=== PATIENT | female | born 1935 | race Caucasian/White ===

== ENCOUNTER → 2016-06-29 | Outpatient (CLI) | payer MEDICARE ==
[~2016-06-29] MED LIST: ASPIRIN81 M1 PO; ATORVASTATIN CA20 M1 PO; AZOPT OPH; BONIVA150 MG PO; BRINZOLAMIDE OPH; CALCIUM 500 + D1 TA2 PO; CATAPRES0.3 MG PO; DULE1ARO1 INH; DULERA100 PO; INHALER INH; LISINOPRIL HCTZ1 TAB PO; LOPRESSOR25 MG PO; METFORMIN500 MG PO; NIFEDIPINE30 MG PO; NIFEDIPINE60 MG PO; POTASSIUM20 MEQ PO; PRAVASTATIN SOD80 MG PO; Synthroid,Levo50 MCG PO; VITAMIN D400 I1 PO; ZESTRIL,PRINIVI20 MG PO; [UNRECOGNIZED DRUG - OTHER] PO
--- NOTE | ~2016-06-29 | HM ---
[place], [place] HOLTER MONITOR REPORT NAME: HERMILO GUARDADO UNIT #: [id number] ROOM: DOCTOR: ELE IRIZARRY MD BIRTHDATE: [birth year] DOS: 07/02/2016 A 48 HOUR HOLTER MONITOR Atrial fibrillation, intact cardia, syncope. The patient's baseline rhythm is normal sinus with average heart rate of 66 beats per minute, maximum heart rate 110 beats per minute with minimum heart rate of 51 beats per minute. SUPRAVENTRICULAR ACTIVITY: The patient had noted to have total of 104 isolated PACs. VENTRICULAR ACTIVITY: The patient noted to have a total 33 isolated PVCs. No significant blocks, pauses, or bradycardia. There was no diary entries. SUMMARY OF FINDINGS: Benign Holter with rare PACs and PVCs were not sustained or paroxysmal arrhythmias as significance noted. ELE IRIZARRY MD CM:HOLTER:HOLTER MONITOR REPORT [id number] ELE IRIZARRY MD
== END | disposition home or self-care (01) ==
LOC: CARD 06-22 10:30
DX: I48.91 Unspecified atrial fibrillation (principal); R00.0 Tachycardia, unspecified; R55 Syncope and collapse

== ENCOUNTER → 2019-07-19 | Outpatient (CLI) | payer MEDICARE ==
--- NOTE | 2019-07-19 13:44 | NUR ---
SPEECH PATHOLOGY Outpatient MBS completed as per orders due to suspected aspiration. Patient was accompanied by family members who reported that patient has been having episodes of difficulty catching her breath and occasional coughing with meals. It was reported that she has random episodes where she feels she cannot get air in or out and only finds relief when she breaths in cold air. There are no reports of recent pneumonia. 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 Patient receives a regular diet and thin liquid. Patient reported that many foods bother her stomach so she avoids them. Patient reportedly has not been evaluated recently for breathing or GI issues. For assessment she was alert and cooperative with generalized weakness displayed. Hoarse vocal quality was noted. Oral exam revealed presence of upper and lower denture with loose fit reported. Labial and buccal skills were mildly reduced in ROM. Lingual skills were WNL in terms of strength, ROM and coordination. She was able to volitionally cough and swallow. She was assessed with puree, solid and thin liquid taken by cup and straw. Results revealed a functional oral and pharyngeal swallow. No penetration or aspiration occurred. A small amount of pooling in valleculae was displayed with foods however it cleared with subsequent swallow. Recommend patient remain on present diet with use of safety precautions such as small bites and sips, chewing thoroughly and alternating liquid and solid. Recommend patient follow up with referring physician to determine plan. No follow up speech pathology services are warranted at this time. Dictated report to follow. Thank you for this referral. JAVY ROB MSCCC-CONSULTING SYSTEMS ENGINEER
== END | disposition home or self-care (01) ==
LOC: RAD/SH 13:00
DX: R06.02 Shortness of breath (principal)

== ENCOUNTER 2019-12-12 13:52 | Emergency (ER) | payer MEDICARE ==
[~2019-12-12] VITALS: Ht 165.1 cm; Wt 59.0 kg
[2019-12-12] MEDS ORDERED: CEPHALEXIN500 M1 PO (14:34)
== END 2019-12-12 14:41 | disposition home or self-care (01) ==
LOC: ED 13:52
DX: T23.232A Burn of second degree of multiple left fingers (nail), not including thumb, initial encounter (principal); I10 Essential (primary) hypertension; M81.0 Age-related osteoporosis without current pathological fracture; E11.9 Type 2 diabetes mellitus without complications; X10.0XXA Contact with hot drinks, initial encounter; Y93.89 Activity, other specified; Y92.89 Other specified places as the place of occurrence of the external cause; Y99.8 Other external cause status; Z79.899 Other long term (current) drug therapy; Z79.82 Long term (current) use of aspirin

== ENCOUNTER 2020-10-27 14:55 | Emergency (ER) | payer MEDICARE ==
[~2020-10-27] VITALS: Ht 162.5 cm; Wt 59.0 kg
[~2020-10-27 14:55] MED LIST changes: +CEPHALEXIN500 M1 PO
[2020-10-27 15:45] LABS: BASO % 0.3 % (0.0-1.0); EOS # 0.1 10*3/uL (0.0-0.4); EOS % 1.3 % (1.0-4.0); HEMATOCRIT 34.1 % (37.0-47.0); LYMPH # 1.6 10*3/uL (1.3-4.4); LYMPH % 15.5 % (27.0-41.0); MEAN CELL VOLUME 89.3 fl (81.0-99.0); MEAN CORPUSCULAR HGB CONC 31.4 g/dl (33.0-37.0); MEAN PLATELET VOLUME 10.7 fl (9.6-12.3); MONO # 0.9 10*3/uL (0.1-1.0); MONO % 8.7 % (3.0-9.0); NEUT # 7.6 10*3/uL (2.3-7.9); PLATELET COUNT AUTOMATED 214 10*3/uL (130-400); RED BLOOD COUNT 3.82 10*6/uL (4.10-5.10); RED CELL DISTRI WIDTH 14.2 % (0-14.5); WHITE BLOOD COUNT 10.3 10*3/uL (4.8-10.8)
[2020-10-27 16:01] LABS: ALBUMIN 3.7 gm/dl (3.1-4.5); CREATININE 1.06 mg/dL (0.55-1.02); POTASSIUM 3.7 mmol/L (3.5-5.1); TOTAL PROTEIN 7.1 gm/dL (6.4-8.2)
[2020-10-27] MEDS ORDERED: ZOFRAN4 MG PO (17:09)
== END 2020-10-27 17:15 | disposition home or self-care (01) ==
LOC: ED 14:55
PROVIDERS: Student in an Organized Health Care Education/Training Program
DX: R11.0 Nausea (principal); R20.0 Anesthesia of skin; R20.2 Paresthesia of skin; Z79.2 Long term (current) use of antibiotics; Z79.899 Other long term (current) drug therapy; Z79.82 Long term (current) use of aspirin; Z98.890 Other specified postprocedural states; Z90.49 Acquired absence of other specified parts of digestive tract